=== PATIENT | male | born 1995 | race African-American/Black ===

== ENCOUNTER 2021-10-25 20:13 | Inpatient (IN) | payer MEDICAID, OTHER ==
[~2021-10-25] VITALS: Ht 188 cm; Wt 67.3 kg
[2021-10-25 22:44] LABS: Basophils # (auto) 0.1 10 ^3/uL (0-0.2); Basophils % (auto) 0.4 % (0.0-2.0); Eosinophils # (auto) 0 10 ^3/uL (0-0.8); Hematocrit 48.6 % (41.0-53.0); Hemoglobin 15.6 g/dL (13.5-17.5); Lymphocytes # (auto) 1.3 10 ^3/uL (0.4-5.4); Lymphocytes % (auto) 8.6 % (10.0-50.0); Mean Corpuscular Hemoglobin 32.1 pg (28.0-32.0); Mean Corpuscular Hgb Conc. 32.1 g/dL (32.0-36.0); Mean Corpuscular Volume 100.2 fL (80.0-100.0); Monocytes # (auto) 1.1 10 ^3/uL (0-1.3); Monocytes % (auto) 7.2 % (0.0-12.0); Neutrophils # (auto) 12.6 10 ^3/uL (1.6-8.6); Neutrophils % (auto) 83.8 % (37.0-80.0); Nucleated Red Blood Cells % 0.1 %; Red Blood Cells 4.85 10^6/uL (4.5-5.90); Red Cell Distribution Width 14.7 % (11.8-14.3)
[2021-10-25] MEDS ORDERED: ONDANSETRON HCL 4 MG/2 ML VIAL IV ONE (23:15)
[2021-10-25] MEDS ORDERED: KETOROLAC TROMETH 30 MG/ML 1ML VIAL IV ONE (23:15)
[2021-10-25] MEDS ORDERED: SODIUM CHLORIDE 0.9% 1,000 ML IV ONE (23:15)
[2021-10-25 23:25] LABS: Albumin 5.2 g/dL (3.4-5.0); Calcium 10.9 mg/dL (8.5-10.1)
[2021-10-25 23:27] LABS: Lactic Acid w/Reflex 4.7 mmol/L (0.4-2.0)
[2021-10-25 23:29] LABS: Bilirubin, Total 0.5 mg/dL (0.2-1.0); Total Protein 9.5 g/dL (6.4-8.2)
[2021-10-25 23:57] LABS: BUN/Creatinine Ratio 17.7
[2021-10-26] MEDS ORDERED: DEXTROSE (50%) 50ML SYRG IV PRN (01:15)
[2021-10-26] MEDS ORDERED: SODIUM CHLORIDE 0.9% 1,000 ML IV ONE (01:15)
[2021-10-26] MEDS ORDERED: InsuLIN R (HUMAN) 100 UNITS in SODIUM CHL 0.9% 99 ML IV SCH (01:15)
[2021-10-26] MEDS ORDERED: INSULIN LANTUS (GLARGINE) 1 /0.01ml (100units/ml) SC ONE (01:15)
[2021-10-26] MEDS ORDERED: InsuLIN REG 1unit/0.01ml Soln (100units/ml) ONE (01:20)
[2021-10-26] MEDS: ACCU-CHEK COMFORT CURVE STRIP VI SCH ×12 (01:36→20:00)
[2021-10-26] MEDS ORDERED: MORPHINE SULFATE 4 MG/ML SYR/VIAL IV PRN (02:15)
[2021-10-26] MEDS ORDERED: DOCUSATE SOD 100 MG CAP PO PRN (02:15)
[2021-10-26] MEDS ORDERED: ACETAMINOPHEN 325 MG TAB PO PRN (02:15)
[2021-10-26] MEDS ORDERED: ONDANSETRON HCL 4 MG/2 ML VIAL IV PRN (02:15)
[2021-10-26 02:39] LABS: Urine Bacteria NONE SEEN /hpf (None Seen); Urine Blood Negative /uL (Negative); Urine Mucus FEW (None Seen); Urine WBC 2 /hpf (0 - 3)
[2021-10-26] MEDS: SODIUM CHLORIDE 0.9% 1,000 ML IV SCH ×2 (03:38→18:00)
[2021-10-26] MEDS ORDERED: NITROGLYCERIN 0.4 MG SL TAB SL PRN (04:00)
[2021-10-26] MEDS ORDERED: MORPHINE SULFATE INJECTION 2 MG/ML SYRG IV PRN (04:00)
[2021-10-26] MEDS: cefTRIAXone 1GM/50ML D5W 50 ML IV SCH (04:15)
[2021-10-26] MEDS ORDERED: SODIUM BICARBONATE 8.4 % INJ 50ML VIAL IV ONE (06:45)
[2021-10-26] MEDS: InsuLIN R (HUMAN) 100 UNITS in SODIUM CHL 0.9% 99 ML IV SCH ×2 (07:45→15:52)
[2021-10-26 07:53] LABS: Basophils # (auto) 0 10 ^3/uL (0-0.2); Basophils % (auto) 0.2 % (0.0-2.0); Eosinophils # (auto) 0 10 ^3/uL (0-0.8); Hematocrit 41.4 % (41.0-53.0); Hemoglobin 13.3 g/dL (13.5-17.5); Lymphocytes # (auto) 2.2 10 ^3/uL (0.4-5.4); Lymphocytes % (auto) 12.3 % (10.0-50.0); Mean Corpuscular Hemoglobin 31.4 pg (28.0-32.0); Mean Corpuscular Hgb Conc. 32.2 g/dL (32.0-36.0); Mean Corpuscular Volume 97.5 fL (80.0-100.0); Monocytes # (auto) 1.7 10 ^3/uL (0-1.3); Monocytes % (auto) 9.6 % (0.0-12.0); Neutrophils # (auto) 13.9 10 ^3/uL (1.6-8.6); Neutrophils % (auto) 77.9 % (37.0-80.0); Nucleated Red Blood Cells % 0.1 %; Red Blood Cells 4.24 10^6/uL (4.5-5.90); Red Cell Distribution Width 14.2 % (11.8-14.3); White Blood Cell 17.8 10^3/uL (4.4-10.8)
[2021-10-26 08:10] LABS: Albumin 3.7 g/dL (3.4-5.0); Calcium 8.9 mg/dL (8.5-10.1)
[2021-10-26 08:14] LABS: BUN/Creatinine Ratio 19.2; Bilirubin, Total 0.4 mg/dL (0.2-1.0); Total Protein 7.4 g/dL (6.4-8.2)
[2021-10-26 08:18] LABS: Potassium 5.8 mmol/L (3.5-5.1)
[2021-10-26] MEDS ORDERED: InsuLIN REG 1unit/0.01ml Soln (100units/ml) IV ONE (08:45)
[2021-10-26] MEDS: FAMOTIDINE (10MG/ML) 2ML VL IV SCH ×2 (09:14→21:53)
[2021-10-26] MEDS ORDERED: SODIUM ZIRCONIUM CYCL 10 GM PAK PO ONE (11:30)
[2021-10-26 11:59] LABS: BUN/Creatinine Ratio 17.2; Calcium 9.5 mg/dL (8.5-10.1); Potassium 4.3 mmol/L (3.5-5.1)
[2021-10-26] MEDS ORDERED: D5W/SOD CHLO 0.9% 1,000 ML IV SCH (14:00)
[2021-10-26 16:34] LABS: BUN/Creatinine Ratio 15.4; Calcium 9.6 mg/dL (8.5-10.1); Potassium 4.6 mmol/L (3.5-5.1)
[2021-10-26] MEDS: InsuLIN REG 1unit/0.01ml Soln (100units/ml) SC SCH (20:00)
[2021-10-26 22:00] VITALS: BP 114/67
[2021-10-27] MEDS: InsuLIN REG 1unit/0.01ml Soln (100units/ml) SC SCH ×5 (00:06→15:45)
[2021-10-27] MEDS: ACCU-CHEK COMFORT CURVE STRIP VI SCH ×5 (00:06→15:45)
[2021-10-27 05:00] VITALS: BP 110/65
[2021-10-27 06:56] LABS: Basophils # (auto) 0 10 ^3/uL (0-0.2); Basophils % (auto) 0.2 % (0.0-2.0); Eosinophils # (auto) 0 10 ^3/uL (0-0.8); Hematocrit 39.2 % (41.0-53.0); Hemoglobin 13.2 g/dL (13.5-17.5); Lymphocytes % (auto) 24.4 % (10.0-50.0); Mean Corpuscular Hemoglobin 31.8 pg (28.0-32.0); Mean Corpuscular Hgb Conc. 33.6 g/dL (32.0-36.0); Mean Corpuscular Volume 94.6 fL (80.0-100.0); Monocytes # (auto) 0.7 10 ^3/uL (0-1.3); Monocytes % (auto) 8.4 % (0.0-12.0); Neutrophils # (auto) 5.6 10 ^3/uL (1.6-8.6); Nucleated Red Blood Cells % 0.1 %; Red Blood Cells 4.14 10^6/uL (4.5-5.90); Red Cell Distribution Width 13.6 % (11.8-14.3); White Blood Cell 8.3 10^3/uL (4.4-10.8)
[2021-10-27 07:22] LABS: Potassium 4.1 mmol/L (3.5-5.1)
[2021-10-27 07:29] LABS: Albumin 3.4 g/dL (3.4-5.0); BUN/Creatinine Ratio 12.7; Bilirubin, Total 0.6 mg/dL (0.2-1.0); Total Protein 6.8 g/dL (6.4-8.2)
[2021-10-27 08:00] VITALS: BP 111/70
[2021-10-27] MEDS: cefTRIAXone 1GM/50ML D5W 50 ML IV SCH (08:47)
[2021-10-27] MEDS: FAMOTIDINE (10MG/ML) 2ML VL IV SCH (09:11)
[2021-10-27] MEDS ORDERED: INSULIN LANTUS (GLARGINE) 1 /0.01ml (100units/ml) SC SCH (10:00)
[2021-10-27] MEDS: SODIUM CHLORIDE 0.9% 1,000 ML IV SCH (11:19)
[2021-10-27 13:00] VITALS: BP 111/70
[2021-10-27] MEDS: HYDROcodone-ACET 5/325MG TAB PO PRN ×2 (15:51→19:52)
[2021-10-27 17:00] VITALS: BP 107/63
== END 2021-10-27 20:40 | disposition home or self-care (01) | DRG 720 ==
LOC: ER 20:14 → OVERFLOW 10-26 03:48 → WEST WING 10-26 19:52
PROVIDERS: ADMIT Nurse Practitioner Family; ATTEND Family Medicine
DX: A41.9 Sepsis, unspecified organism (principal); N17.0 Acute kidney failure with tubular necrosis; E10.10 Type 1 diabetes mellitus with ketoacidosis without coma; E87.1 Hypo-osmolality and hyponatremia; E86.0 Dehydration; E87.5 Hyperkalemia; Z20.822 Contact with and (suspected) exposure to COVID-19; Z91.14 Patient's other noncompliance with medication regimen
CPT/HCPCS: 36415; 36600; 71045; 74176; 80048; 80053; 81001; 82010; 82805; 82962; 83036; 83605; 83690; 85025; 87040; 87426; 96361; 96365; 96375; G0378; J0696; J1815; J1885; J2405; J3490; J7060

== ENCOUNTER 2021-11-15 05:43 | Emergency (ER) | payer MEDICAID ==
[~2021-11-15] VITALS: Ht 188 cm; Wt 72.6 kg
[2021-11-15 06:47] VITALS: BP 125/87
[2021-11-15] MEDS ORDERED: METH4PAK PO (07:52)
[2021-11-15] MEDS ORDERED: AZIT500T66 PO (07:52)
[2021-11-15] MEDS ORDERED: ACET-1080 PO (07:52)
== END 2021-11-15 08:23 | disposition home or self-care (01) ==
LOC: ER 05:43
DX: U07.1 COVID-19 (principal); M79.10 Myalgia, unspecified site; E11.9 Type 2 diabetes mellitus without complications
CPT/HCPCS: 36415; 71045; 87426

== ENCOUNTER 2022-01-02 15:02 | Emergency (ER) | payer MEDICAID ==
[~2022-01-02] VITALS: Ht 188 cm; Wt 81.6 kg
[~2022-01-02 15:02] MED LIST: ACET-1080 PO; AZIT500T66 PO; METH4PAK PO
[2022-01-02] MEDS ORDERED: SODIUM CHLORIDE 0.9% 1,000 ML IV ONE (15:30)
[2022-01-02] MEDS ORDERED: ONDANSETRON HCL 4 MG/2 ML VIAL IV ONE ×2 (15:30→19:00)
[2022-01-02 16:00] LABS: Basophils # (auto) 0 10 ^3/uL (0-0.2); Basophils % (auto) 0.7 % (0.0-2.0); Eosinophils # (auto) 0 10 ^3/uL (0-0.8); Eosinophils % (auto) 0.1 % (0.0-7.0); Hematocrit 39.6 % (41.0-53.0); Hemoglobin 13.2 g/dL (13.5-17.5); Lymphocytes # (auto) 1.1 10 ^3/uL (0.4-5.4); Mean Corpuscular Hemoglobin 31.3 pg (28.0-32.0); Mean Corpuscular Hgb Conc. 33.5 g/dL (32.0-36.0); Mean Corpuscular Volume 93.5 fL (80.0-100.0); Monocytes # (auto) 0.2 10 ^3/uL (0-1.3); Monocytes % (auto) 5.5 % (0.0-12.0); Neutrophils # (auto) 2.6 10 ^3/uL (1.6-8.6); Neutrophils % (auto) 66.7 % (37.0-80.0); Nucleated Red Blood Cells % 0.1 %; Red Blood Cells 4.23 10^6/uL (4.5-5.90); Red Cell Distribution Width 13.8 % (11.8-14.3); White Blood Cell 3.9 10^3/uL (4.4-10.8)
[2022-01-02 16:16] LABS: Albumin 4.1 g/dL (3.4-5.0); Calcium 9.4 mg/dL (8.5-10.1)
[2022-01-02 16:19] LABS: BUN/Creatinine Ratio 15.8; Bilirubin, Total 0.4 mg/dL (0.2-1.0); Total Protein 7.8 g/dL (6.4-8.2)
[2022-01-02 18:24] VITALS: BP 127/63
[2022-01-02 20:39] LABS: Urine Bacteria NONE SEEN /hpf (None Seen); Urine Blood Negative /uL (Negative); Urine Specific Gravity 1.034 (1.001-1.035); Urine WBC <1 /hpf (0 - 3)
== END 2022-01-02 20:31 | disposition home or self-care (01) ==
LOC: ER 15:02
DX: B34.9 Viral infection, unspecified (principal); E11.65 Type 2 diabetes mellitus with hyperglycemia; F12.10 Cannabis abuse, uncomplicated; R42 Dizziness and giddiness
CPT/HCPCS: 36415; 36600; 80053; 81001; 82010; 82805; 85025; 96361; 96374; 96376; 99283; J2405

== ENCOUNTER 2022-01-25 13:19 | Emergency (ER) | payer MEDICAID ==
[~2022-01-25] VITALS: Ht 182.9 cm; Wt 77.1 kg
[2022-01-25] MEDS ORDERED: DEXTROSE 10% 1,000 ML IV SCH (13:45)
[2022-01-25 14:29] LABS: Basophils # (auto) 0 10 ^3/uL (0-0.2); Basophils % (auto) 0.8 % (0.0-2.0); Eosinophils # (auto) 0 10 ^3/uL (0-0.8); Eosinophils % (auto) 0.2 % (0.0-7.0); Hematocrit 40.3 % (41.0-53.0); Hemoglobin 13.5 g/dL (13.5-17.5); Lymphocytes % (auto) 21.7 % (10.0-50.0); Mean Corpuscular Hemoglobin 32.3 pg (28.0-32.0); Mean Corpuscular Hgb Conc. 33.5 g/dL (32.0-36.0); Mean Corpuscular Volume 96.4 fL (80.0-100.0); Monocytes # (auto) 0.3 10 ^3/uL (0-1.3); Monocytes % (auto) 7.3 % (0.0-12.0); Neutrophils # (auto) 3.2 10 ^3/uL (1.6-8.6); Red Blood Cells 4.18 10^6/uL (4.5-5.90); Red Cell Distribution Width 14.2 % (11.8-14.3); White Blood Cell 4.6 10^3/uL (4.4-10.8)
[2022-01-25 14:39] LABS: BUN/Creatinine Ratio 14.3; Calcium 8.9 mg/dL (8.5-10.1); Magnesium 2.9 mg/dL (1.6-2.6); Potassium 3.7 mmol/L (3.5-5.1)
[2022-01-25 14:42] LABS: Bilirubin, Total 0.2 mg/dL (0.2-1.0); Total Protein 7.9 g/dL (6.4-8.2)
[2022-01-25 15:30] VITALS: BP 129/81
[2022-01-25 15:31] LABS: Urine Bacteria NONE SEEN /hpf (None Seen); Urine Blood Negative /uL (Negative); Urine Mucus FEW (None Seen); Urine Specific Gravity 1.013 (1.001-1.035); Urine WBC 1 /hpf (0 - 3)
[2022-01-25 15:46] LABS: Alcohol, Urine < 3.0 mg/dL (0-10); Amphetamine Screen, Urine NEGATIVE (NEGATIVE); Barbiturate Scree,Urine NEGATIVE (NEGATIVE); Benzodiazephine Screen, Urine NEGATIVE (NEGATIVE); Cannabinoid Screen, Urine POSITIVE (NEGATIVE); Cocaine Screen, Urine NEGATIVE (NEGATIVE); Phencyclidine Screen, Urine NEGATIVE (NEGATIVE)
[2022-01-25 15:54] LABS: Opiate Scree,Urine NEGATIVE (NEGATIVE)
== END 2022-01-25 18:10 | disposition home or self-care (01) ==
LOC: ER 13:19 → EDBD 13:19 → ER 18:09
DX: E11.649 Type 2 diabetes mellitus with hypoglycemia without coma (principal); F12.10 Cannabis abuse, uncomplicated; Z79.2 Long term (current) use of antibiotics; Z79.899 Other long term (current) drug therapy
CPT/HCPCS: 36415; 71045; 80053; 80307; 81001; 82962; 83735; 85025; 93005; 96360; 96361

== ENCOUNTER 2022-01-28 14:16 | Emergency (ER) | payer MEDICAID ==
[~2022-01-28] VITALS: Ht 182.9 cm; Wt 72.6 kg
[2022-01-28] MEDS ORDERED: SODIUM CHLORIDE 0.9% 1,000 ML IVB ONE (15:00)
[2022-01-28] MEDS ORDERED: MORPHINE SULFATE 4 MG/ML SYR/VIAL IV ONE (15:00)
[2022-01-28] MEDS ORDERED: PANTOPRAZOLE 40 MG/10 ML VIAL INJ IV ONE (15:00)
[2022-01-28] MEDS ORDERED: PROCHLORPERAZINE EDISYLATE 5 MG/ML 2ML VIAL IV ONE (15:00)
[2022-01-28] MEDS ORDERED: MORPHINE SULFATE INJECTION 2 MG/ML SYRG IV ONE (15:30)
[2022-01-28 15:39] LABS: Basophils # (auto) 0 10 ^3/uL (0-0.2); Basophils % (auto) 0.6 % (0.0-2.0); Eosinophils # (auto) 0 10 ^3/uL (0-0.8); Eosinophils % (auto) 0.1 % (0.0-7.0); Hematocrit 41.5 % (41.0-53.0); Hemoglobin 13.9 g/dL (13.5-17.5); Lymphocytes # (auto) 1.3 10 ^3/uL (0.4-5.4); Lymphocytes % (auto) 19.1 % (10.0-50.0); Mean Corpuscular Hemoglobin 31.4 pg (28.0-32.0); Mean Corpuscular Hgb Conc. 33.6 g/dL (32.0-36.0); Mean Corpuscular Volume 93.4 fL (80.0-100.0); Monocytes # (auto) 0.5 10 ^3/uL (0-1.3); Monocytes % (auto) 7.2 % (0.0-12.0); Neutrophils # (auto) 4.8 10 ^3/uL (1.6-8.6); Nucleated Red Blood Cells % 0.2 %; Red Blood Cells 4.44 10^6/uL (4.5-5.90); Red Cell Distribution Width 13.6 % (11.8-14.3); White Blood Cell 6.6 10^3/uL (4.4-10.8)
[2022-01-28 15:52] LABS: Albumin 4.1 g/dL (3.4-5.0); Calcium 9.1 mg/dL (8.5-10.1); Potassium 3.9 mmol/L (3.5-5.1)
[2022-01-28 15:58] LABS: BUN/Creatinine Ratio 18.1; Bilirubin, Total 0.6 mg/dL (0.2-1.0); Total Protein 7.8 g/dL (6.4-8.2)
[2022-01-28] MEDS ORDERED: InsuLIN REG 1unit/0.01ml Soln (100units/ml) IV ONE (16:15)
[2022-01-28 18:33] VITALS: BP 104/72
[2022-01-28] MEDS ORDERED: ONDA-144 PO (18:36)
[2022-01-28] MEDS ORDERED: PANT40TA2 PO (18:36)
[2022-01-28 18:37] LABS: Urine Bacteria NONE SEEN /hpf (None Seen); Urine Blood Negative /uL (Negative); Urine Mucus FEW (None Seen); Urine WBC 2 /hpf (0 - 3)
== END 2022-01-28 18:44 | disposition home or self-care (01) ==
LOC: ER 14:16
DX: F12.188 Cannabis abuse with other cannabis-induced disorder (principal); E11.65 Type 2 diabetes mellitus with hyperglycemia
CPT/HCPCS: 36415; 80053; 81001; 82010; 82150; 82962; 83690; 85025; 96361; 96374; 96375; 99284; C9113; J0780; J2270; J7030

== ENCOUNTER 2025-05-17 01:10 | Inpatient (IN) | payer OTHER ==
[~2025-05-17] VITALS: Ht 185.4 cm; Wt 78.9 kg
[2025-05-17] VITALS (13 sets, daily range): BP systolic 116–141; BP diastolic 73–92; PULSE 67–104; RESP 11–23; TEMP 98.3–98.7; O2SAT 95–97
[~2025-05-17 01:10] MED LIST changes: -ACET-1080 PO; -AZIT500T66 PO; +INSLANTI SC; +INSREGI SC; -METH4PAK PO
--- NOTE | 2025-05-17 01:25 | ED.PDOC ---
GI ASSESSMENT HPI Comments 29 year old male presents to ER with complaints n/v x 3 days. Patient with PMH of Type 1 diabetes states he's been experiencing n/v and lower abdominal pain x 3 days. Notes he was seen at [facility] twice since onset of symptoms and discharged home with diagnosis of gastritis but states his symptoms haven not improved prompting him to come back to ER for further evaluation. He rates his current pain a 10/10 diffuse to lower abdomen without radiation. Denies use of medications for current symptoms and presents to ER ambulatory on arrival with steady gait, alert and oriented x4, in mild distress with BG 405 on arrival. Denies fever, chest pain, shortness of breath, headache, dizziness, con fusion, changes in urination/bm or any further symptoms/complaints Time Seen by MD: 01:13 Primary Care Provider: [facility] Reviewed Notes: Nurses Notes, Medications, Allergies Allergies: Coded Allergies: NO KNOWN ALLERGIES (Unverified , 10/25/21) Home Meds Reported Medications Insulin Glargine (Lantus) 100 Unit/Ml Inj, 16 UNIT SC HS, INJ 04/07/22 Insulin Regular (Human) (Novolin R) 100 Unit/Ml Inj, SC UD 04/07/22 Information Source: Patient Mode of Arrival: Ambulatory Past Medical History PAST MEDICAL HISTORY: DM (Type 1) Surgical History: Denies all surgeries Family History Family History: Family hx of DM Social History Smoker: Non-Smoker Alcohol: Denies ETOH Use Drugs: Marijuana Lives In: Home Constitutional: denies: chills, diaphoresis, fatigue, fever, malaise, sweats, weakness, others EENTM: denies: blurred vision, double vision, ear bleeding, ear discharge, ear drainage, ear pain, ear ringing, eye pain, eye redness, hearing loss, mouth pain, mouth swelling, nasal discharge, nose bleeding, nose congestion, nose pain, photophobia, tearing, throat pain, throat swelling, voice changes, others Respiratory: denies: cough, hemoptysis, orthopnea, SOB at rest, shortness of breath, SOB with excertion, stridor, wheezing, others Cardiovascular: denies: chest pain, dizzy spells, diaphoresis, Dyspnea on ex ertion, edema, irregular heart beat, left arm pain, lightheadedness, palpitations, PND, syncope, others Gastrointestinal: reports: others (As stated in HPI) Genitourinary: denies: burning, dysuria, flank pain, frequency, hematuria, incontinence, penile discharge, penile sore, pain, testicle pain, testicle swelling, urgency, others Neurological: denies: dizziness, fainting, headache, left sided numbness, left sided weakness, numbness, paresthesia, pre-existing deficit, right sided numbness, right sided weakness, seizure, speech problems, tingling, tremors, weakness, others Musculoskeletal: denies: back pain, gout, joint pain, joint swelling, muscle pain, muscle stiffness, neck pain, others Integumetry: denies: bruises, change in color, change in hair/nails, dryness, laceration, lesions, lumps, rash, wounds, others Allergic/Immunocompromised: denies: Difficulty Healing, Frequent Infections, Hives, Itching, others Hematologic/Lymphatic: denies: anemia, blood clots, easy bleeding, easy bruising, swollen glands, others Endocrine: denies: excessive hunger, excessive sweating, excessive thirst, excessive urination, flushing, intolerance to cold, intolerance to heat, unexplained weight gain, unexplained weight loss, others Psychiatric: denies: anxiety, bipolar disorder, depression, hopeless, panic disorder, schizophrenia, sleepless, suicidal, others Physical Exam General Appearance: Mild Distress HEENT: Normal ENT Inspection, PERRL/EOMI, Pharynx Normal, TMs Normal Neck: Full Range of Motion, Non-Tender, Normal Respiratory: Chest Non-Tender, Lungs Clear, No Accessory Muscle Use, No R espiratory Distress, Normal Breath Sounds Cardiovascular: No Murmur, No Gallop, Tachycardia Breast Exam: Deferred Gastrointestinal: No Organomegaly, No Pulsatile Mass, Normal Bowel Sounds, S oft, Other (TTP to periumbilical region of abdomen noted. No rebound/guarding noted. No hernias/masses/skin changes appreciated) Genitalia: Deferred Pelvic: Deferred Rectal: Deferred Extremities: Normal capillary refill, Normal range of motion Neurologic: Alert, model and pattern supervisor II-XII nml as Tested, No Motor Deficits, No Sensory Deficits Cerebellar Function: Normal Reflexes: Normal Skin: Dry, Normal Color, Warm Lymphatic: No Adenopathy Was a procedure done? Was a procedure done?: No Sedation Sedation?: No GI differential Dx Differential Diagnosis: GI hemorrhage, Ischemic Bowel, Trauma intraabdominal X-Ray, Labs, Meds, VS Vital Signs Date Time Temp Pulse Resp B/P (MAP) Pulse Ox O2 Delivery O2 Flow Rate FiO2 05/17/25 02:35 97 21 140/81 05/17/25 02:29 95 15 96 Room Air* 0 21 05/17/25 02:05 95 15 127/86 05/17/25 02:00 98.7 95 15 127/86 (100) 96 98.7 05/17/25 01:28 98.4 118 18 133/89 (104) 95 98.4 Lab Test 05/17/25 03:03 05/17/25 02:30 05/17/25 01:59 05/17/25 01:35 Range/Units POC Glucose 409 *H 415 *H 70-106 mg/dl Blood Gas Specimen Type Arterial Blood Gas Sample Site Right radial Blood Gas Patient Temperature 37.0 Arterial Blood Date Drawn [id number] Arterial Blood pH 7.330 L 7.350-7.450 Arterial Blood Partial Pressure CO2 31.8 L 35.0-48.0 mmHg Arterial Blood Partial Pressure O2 80.6 L 83.0-108.0 mmHg Arterial Blood HCO3 16.4 L 21.0-28.0 mmol/L Arterial Blood Oxygen Saturation 94.6 94.0-98.0 % Arterial Blood Base Excess -8.3 L -2.0-3.0 mmol/L Arterial Blood Oxyhemoglobin 90.6 L 94.0-98.0 % Arterial Blood Carboxyhemoglobin 3.6 H 0.5-1.5 % Arterial Blood Methemoglobin 0.6 0.0-1.5 % Cyrus Test Yes Blood Gas Total Hemoglobin 14.20 13.5-17.5 g/dL Blood Gas Modality Room air FiO2 % 21.0 White Blood Count 5.9 4.4-10.8 10^3/uL Red Blood Count 4.44 L 4.5-5.90 10^6/uL Hemoglobin 14.4 13.5-17.5 g/dL Hematocrit 42.7 41.0-53.0 % Mean Corpuscular Volume 96.1 80.0-100.0 fL Mean Corpuscular Hemoglobin 32.5 H 28.0-32.0 pg Mean Corpuscular Hemoglobin Concent 33.8 32.0-36.0 g/dL Red Cell Distribution Width 13.6 11.8-14.3 % Platelet Count 226 140-450 10^3/uL Mean Platelet Volume 8.1 6.9-10.8 fL Neutrophils (%) (Auto) 71.5 37.0-80.0 % Lymphocytes (%) (Auto) 20.8 10.0-50.0 % Monocytes (%) (Auto) 7.3 0.0-12.0 % Eosinophils (%) (Auto) 0.0 0.0-7.0 % Basophils (%) (Auto) 0.4 0.0-2.0 % Neutrophils # (Auto) 4.2 1.6-8.6 10 ^3/uL Lymphocytes # (Auto) 1.2 0.4-5.4 10 ^3/uL Monocytes # (Auto) 0.4 0-1.3 10 ^3/uL Eosinophils # (Auto) 0 0-0.8 10 ^3/uL Basophils # (Auto) 0 0-0.2 10 ^3/uL Nucleated Red Blood Cells 0.1 % Sodium Level 132 L 136-145 mmol/L Potassium Level 4.6 3.5-5.1 mmol/L Chloride Level 95 L 98-107 mmol/L Carbon Dioxide Level 16 L 20-31 mmol/L Anion Gap 21 H 5-15 Blood Urea Nitrogen 11 9-23 mg/dL Creatinine 1.27 0.700-1.30 mg/dL Glomerular Filtration Rate Calc 77 >90 mL/min BUN/Creatinine Ratio 8.7 L 10.0-20.0 Serum Glucose 439 *H 74-106 mg/dL Lactic Acid Level 2.0 0.4-2.0 mmol/L Calcium Level 9.8 8.7-10.4 mg/dL Phosphorus Level 4.3 2.4-5.1 mg/dL Magnesium Level 1.8 1.6-2.6 mg/dL Lipase 23 12-53 U/L Beta-Hydroxybutyric Acid > 4.500 H < 0.4 mmol/L Test 05/17/25 01:30 05/17/25 01:25 05/17/25 01:24 Range/Units Urine Color Light-yellow Yellow Urine Clarity Clear Clear Urine pH 5.0 5.0-9.0 Urine Specific [place] 1.031 1.001-1.035 Urine Protein Negative Negative Urine Ketones 4+ H Negative Urine Blood Negative Negative /uL Urine Nitrite Negative Negative Urine Bilirubin Negative Negative Urine Urobilinogen Normal Negative mg/dL Urine Leukocyte Esterase Negative Negative /uL Urine RBC <1 0 - 3 /hpf Urine Microscopic WBC 1 0-3 /HPF Urine Squamous Epithelial Cells None seen <5 /hpf Urine Bacteria None seen None Seen /hpf Urine Glucose 4+ H Normal mg/dL POC Glucose 416 *H 405 *H 70-106 mg/dl Current Medications Medications (Trade) Dose Ordered Sig/Lubna Route Start Time Stop Time Status Last Admin Sodium Chloride 1,000 ml @ 1,000 mls/hr Q1H ONCE IV 05/17/25 01:30 05/17/25 02:29 DC 05/17/25 01:51 Morphine Sulfate 2 mg ONCE ONCE IV 05/17/25 01:30 05/17/25 01:31 DC 05/17/25 02:05 Ondansetron HCl (Zofran) 4 mg ONCE ONCE IV 05/17/25 02:00 05/17/25 02:01 DC 05/17/25 02:04 Insulin Human (Reg)/Sodium Chloride 100 ml @ 0.5 mls/hr Q24H IV 05/17/25 02:30 05/17/25 02:46 Diagnostic Test (Pha) (Accu-Chek Comfort Curve T) 1 strip Q90MIN 05/17/25 03:00 05/17/25 03:02 Potassium Bicarbonate (Klor-Con/Ef) 25 meq ONCE ONCE PO 05/17/25 03:15 05/17/25 03:16 DC 05/17/25 03:12 PATIENT: DONTRELL HOODCCT: [id number]: [id number] : 1995 LOC: ER ROOM / BED: / AGE / SEX: 29 / M ADM STATUS: REG ER SERVICE 0140 ORDERING PHYSICIAN: EDER ANN PROCEDURE(s): ABPL - CT AB PEL WO CON-NO ORAL OR IV REASON: abdominal pain ORDER NUMBER(s): [id number], ACCESSION NUMBER(s): [id number] Exam: CT CT AB PEL WO CON-NO ORAL OR IV History: abdominal pain Comparison Study: CT ABD PELVIS WO CONTRAST on DOS: 04/06/22, CT ABD PELVIS WO CONTRAST on DOS: 10/25/21 Technique: Multidetector spiral CT of the abdomen was performed from lung bases to pubic symphysis. Imaging was performed without IV contrast. Axial, coronal and sagittal multiplanar reformats were obtained from the axial data set by the technologist. Radiation Dose : 1. Abdomen/Pelvis: CTDIvol 5.84 mGy, DLP 333.31 mGy*cm. Findings: Evaluation of solid organs is limited due to lack of intravenous contrast use. Lung Bases: No acute or significant lung base finding. Normal heart size. No pleural or pericardial effusion. Liver: The liver is normal in size. Diffuse hepatic steatosis. No focal lesions. Gallbladder and Biliary Tree: Unremarkable Spleen: Unremarkable Pancreas: The pancreas is grossly normal in appearance. Adrenal Glands: Unremarkable Kidneys: Kidneys are grossly normal without calculi or hydronephrosis. Bladder: Grossly unremarkable for degree of distention. Bowel: The stomach is grossly normal in appearance. Small bowel and colon are normal in caliber and distribution. The appendix is normal. Ascites: Absent Lymphadenopathy: No mesenteric, retroperitoneal or periportal lymphadenopathy. Abdominal Wall and Mesentery: Unremarkable. Vasculature: The visualized abdominal aorta is normal in size and caliber. Evaluation of abdominal and pelvic vessels is limited due to lack of intravenous contrast. Pelvic Organs: Unremarkable Musculoskeletal: No aggressive focal bony lesions, acute fractures or dislocation. IMPRESSION: 1. No acute abdominal or pelvic findings. 2. Hepatic steatosis. Radiation optimization: All CT scans at this facility use at least one of these dose optimization techniques: automated exposure control mA and/or kV adjustment per patient size (includes targeted exams where dose is matched to clinical indication) or iterative reconstruction. ATED BY: SHELDON HERNANDEZ MD DICTATED DATE/TIME: 05/17/25232 SIGNED BY: SHELDON HERNANDEZ MD SIGNED DATE/TIME: 05/17/25232 CC: CT abdomen/pelvis w/o contrast reviewed CBC reviewed without any significant abnormalities BMP reviewed-sodium 132, CO2 16, anion gap 21, glucose 439 Beta hydroxybutyric reviewed-greater than 4.5 Lactic acid reviewed - normal Magnesium reviewed - normal Phosphorus reviewed-normal ABG o Urinalysis reviewed-urine ketones 4+ Hep-Lock IV ordered NS 1 L IV ordered NS 1 L IV ordered Zofran 4 mg IV ordered Morphine 2 mg IV ordered Insulin drip ordered Potassium 25 MEQ p.o. ordered Patient resting comfortably at bedside, in no distress with vitals stable Patient put up for admission orders for DKA Images Reviewed?: Images reviewed and evaluated by me Time of 1ST Reevaluation: 01:32 Reevaluation 1ST: N/A Patient Education/Counseling: Diagnosis, Treatment, Prognosis, Need For Follow Up Family Education/Counseling: No Family Present SEPSIS Sepsis Screen Physician Orders Heplock Iv (05/17/25 ) Ct Ab Pel Wo Con-No Oral Or Iv (05/17/25 01:40) Alternative Energy Engineer (05/17/25 01:28) Blood Pressure (05/17/25 01:28) Pulse Oximetry (05/17/25 01:28) Insulin Drip Protocol (05/17/25 ) Insulin Drip 100 Unit/100ml (Myxredlin 1 (05/17/25 02:30) Abg W/ Co-Ox (05/17/25 02:19) Glucose Blood (Accu-Chek Comfort Curve T (05/17/25 03:00) Admit (05/17/25 03:24) Nitroglycerin Sublingual (Ntrostat Subli (05/17/25 03:30) Morphine Sulfate Injection (05/17/25 03:30) Oxygen By Nasal Cannula (05/17/25 03:24) Stat Ekg For Chest Pain (05/17/25 03:24) Notify Md Of Changes From Base (05/17/25 03:24) Life Sciences Director For 24 Hours (05/17/25 03:24) Emergency Dysrhythmia Protocol (05/17/25 03:24) Rhythm Strips Once Every Shift (05/17/25 03:24) Sodium Chloride 0.9% (05/17/25 03:30) Comprehensive Metabolic Panel (05/17/25 06:30) Basic Metabolic Panel (05/17/25 14:00) Basic Metabolic Panel (05/17/25 18:00) Basic Metabolic Panel (05/17/25 22:00) Ondansetron Hcl (Zofran) (05/17/25 03:30) Pantoprazole (Protonix) (05/17/25 10:00) Sodium Chloride 0.9% (05/17/25 06:00) Vital Signs Date Time Temp Pulse Resp B/P (MAP) Pulse Ox O2 Delivery O2 Flow Rate FiO2 05/17/25 02:35 97 21 140/81 05/17/25 02:29 95 15 96 Room Air* 0 21 05/17/25 02:05 95 15 127/86 05/17/25 02:00 98.7 95 15 127/86 (100) 96 98.7 05/17/25 01:28 98.4 118 18 133/89 (104) 95 98.4 Laboratory Tests Test 05/17/25 01:35 Lactic Acid Level 2.0 mmol/L (0.4-2.0) White Blood Count 5.9 10^3/uL (4.4-10.8) Medications Medications Dose Ordered Sig/Lubna Route Start Time Stop Time Status Last Admin Dose Admin Diagnostic Test (Pha) 1 strip Q90MIN 05/17/25 03:00 05/17/25 03:02 Insulin Human (Reg)/Sodium Chloride 100 ml @ 0.5 mls/hr Q24H IV 05/17/25 02:30 05/17/25 02:46 Morphine Sulfate 2 mg ONCE ONCE IV 05/17/25 01:30 05/17/25 01:31 DC 05/17/25 02:05 Ondansetron HCl 4 mg ONCE ONCE IV 05/17/25 02:00 05/17/25 02:01 DC 05/17/25 02:04 Potassium Bicarbonate 25 meq ONCE ONCE PO 05/17/25 03:15 05/17/25 03:16 DC 05/17/25 03:12 Sodium Chloride 1,000 ml @ 1,000 mls/hr Q1H ONCE IV 05/17/25 01:30 05/17/25 02:29 DC 05/17/25 01:51 Departure 1 Departure Time of Disposition: 02:22 Impression: Primary Impression: DKA (diabetic ketoacidosis) Qualified Codes: E10.10 - Type 1 diabetes mellitus with ketoacidosis without coma Additional Impression: Intractable nausea and vomiting Disposition: ADMITTED INPATIENT Condition: Critical Critical Care Note Critical Care Time?: No Stability Stability form required: No Heart Score Heart Score: Heart Score Response (Comments) Value History N/A 0 EKG N/A 0 Age N/A 0 Risk Factors N/A 0 Troponin N/A 0 Total 0 EDER ANN May 17, 2025 01:25
[2025-05-17] MEDS ORDERED: ONDANSETRON ODT 4 MG TAB PO ONE (01:30)
[2025-05-17] MEDS: SODIUM CHLORIDE 0.9% 1,000 ML IV ONE ×2 (01:51→05:54)
[2025-05-17 01:53] LABS: Urine Bacteria None Seen /hpf (None Seen)
[2025-05-17 02:00] LABS: Potassium 4.6 mmol/L (3.5-5.1)
[2025-05-17 02:01] LABS: Anion Gap 21 (5-15); Basophils # (auto) 0 10 ^3/uL (0-0.2); Basophils % (auto) 0.4 % (0.0-2.0); Eosinophils # (auto) 0 10 ^3/uL (0-0.8); Hematocrit 42.7 % (41.0-53.0); Hemoglobin 14.4 g/dL (13.5-17.5); Lymphocytes # (auto) 1.2 10 ^3/uL (0.4-5.4); Lymphocytes % (auto) 20.8 % (10.0-50.0); Mean Corpuscular Hemoglobin 32.5 pg (28.0-32.0); Mean Corpuscular Hgb Conc. 33.8 g/dL (32.0-36.0); Mean Corpuscular Volume 96.1 fL (80.0-100.0); Monocytes # (auto) 0.4 10 ^3/uL (0-1.3); Monocytes % (auto) 7.3 % (0.0-12.0); Neutrophils # (auto) 4.2 10 ^3/uL (1.6-8.6); Neutrophils % (auto) 71.5 % (37.0-80.0); Nucleated Red Blood Cells % 0.1 %; Platelet Count (auto) 226 10^3/uL (140-450); Red Blood Cells 4.44 10^6/uL (4.5-5.90); Red Cell Distribution Width 13.6 % (11.8-14.3); White Blood Cell 5.9 10^3/uL (4.4-10.8)
[2025-05-17 02:02] LABS: Urine Blood Negative /uL (Negative); Urine Clarity Clear (Clear); Urine Color Light-Yellow (Yellow); Urine Protein, UAD Negative (Negative); Urine Specific Gravity 1.031 (1.001-1.035); Urine Squamous Epithelial Cell None Seen /hpf (<5); Urine Urobilinogen Normal (Negative); Urine WBC 1 /HPF (0-3)
[2025-05-17 02:02] LABS: Calcium 9.8 mg/dL (8.7-10.4)
[2025-05-17] MEDS: ONDANSETRON HCL 4 MG/2 ML VIAL ONE (02:04)
[2025-05-17] MEDS: ONDANSETRON HCL 4 MG/2 ML VIAL IV ONE (02:04)
[2025-05-17] MEDS: MORPHINE SULFATE INJ 2 MG/ml SYRG IV ONE (02:05)
[2025-05-17 02:06] LABS: BUN/Creatinine Ratio 8.7 (10.0-20.0); Blood Urea Nitrogen 11 mg/dL (9-23)
[2025-05-17 02:07] LABS: Lipase 23 U/L (12-53)
[2025-05-17 02:09] LABS: Carbon Dioxide 16 mmol/L (20-31); Chloride 95 mmol/L (98-107); Sodium 132 mmol/L (136-145)
[2025-05-17 02:10] LABS: Glucose 439 mg/dL (74-106)
[2025-05-17 02:18] LABS: Magnesium 1.8 mg/dL (1.6-2.6)
[2025-05-17 02:20] LABS: Phosphorus 4.3 mg/dL (2.4-5.1)
[2025-05-17 02:36] LABS: Base Excess -8.3 mmol/L (-2.0-3.0)
--- NOTE | 2025-05-17 02:36 | DVH ---
Exam: CT CT AB PEL WO CON-NO ORAL OR IV History: abdominal pain Comparison Study: CT ABD PELVIS WO CONTRAST on DOS: 04/06/22, CT ABD PELVIS WO CONTRAST on DOS: 1 Technique: Multidetector spiral CT of the abdomen was performed from lung bases to pubic symphysis. I maging was performed without IV contrast. Axial, coronal and sagittal multiplanar reformats were obta ined from the axial data set by the technologist. Radiation Dose : 1. Abdomen/Pelvis: CTDIvol 5.84 mGy, DLP 333.31 mGy*cm. Findings: Evaluation of solid organs is limited due to lack of intravenous contrast use. Lung Bases: No acute or significant lung base finding. Normal heart size. No pleural or pericardial effusion. Liver: The liver is normal in size. Diffuse hepatic steatosis. No focal lesions. Gallbladder and Biliary Tree: Unremarkable Spleen: Unremarkable Pancreas: The pancreas is grossly normal in appearance. Adrenal Glands: Unremarkable Kidneys: Kidneys are grossly normal without calculi or hydronephrosis. Bladder: Grossly unremarkable for degree of distention. Bowel: The stomach is grossly normal in appearance. Small bowel and colon are normal in caliber and d istribution. The appendix is normal. Ascites: Absent Lymphadenopathy: No mesenteric, retroperitoneal or periportal lymphadenopathy. Abdominal Wall and Mesentery: Unremarkable. Vasculature: The visualized abdominal aorta is normal in size and caliber. Evaluation of abdominal a nd pelvic vessels is limited due to lack of intravenous contrast. Pelvic Organs: Unremarkable Musculoskeletal: No aggressive focal bony lesions, acute fractures or dislocation. IMPRESSION: 1. No acute abdominal or pelvic findings. 2. Hepatic steatosis. Radiation optimization: All CT scans at this facility use at least one of these dose optimization juvenal hniques: automated exposure control mA and/or kV adjustment per patient size (includes targeted exam s where dose is matched to clinical indication) or iterative reconstruction.
[2025-05-17] MEDS: INSULIN DRIP 100 UNIT/100ML 100 ML IV SCH (02:46)
[2025-05-17] MEDS: ACCU-CHEK COMFORT CURVE STRIP VI SCH ×2 (03:02→11:58)
[2025-05-17] MEDS: POTASSIUM CHL 20 Meq TABLET PO ONE (03:02)
[2025-05-17] MEDS: POTASSIUM EFFERVESENT TAB 25 MEQ PO ONE (03:12)
[2025-05-17] MEDS ORDERED: ONDANSETRON HCL 4 MG/2 ML VIAL IV PRN (03:30)
[2025-05-17] MEDS ORDERED: MORPHINE SULFATE INJ 2 MG/ml SYRG IV PRN (03:30)
[2025-05-17] MEDS ORDERED: NITROGLYCERIN 0.4 MG SL TAB SL PRN (03:30)
[2025-05-17] MEDS: SODIUM CHLORIDE 0.9% 500 ML IV ONE (03:53)
[2025-05-17] MEDS ORDERED: MORPHINE SULFATE IV PRN (04:00)
[2025-05-17] MEDS ORDERED: DEXTROSE (50%) 50ML SYRG IV PRN ×2 (04:00→09:30)
--- NOTE | 2025-05-17 04:01 | DVHHP2 ---
Admitting Diagnosis: Nausea and vomiting History of Present Illness 29 year old male with history of DM I is complaining of nausea and vomiting with abdominal pain x3 days. Patient states he was seen at [facility] times for the same symptoms and was diagnosed with gastritis. Patient states symptoms have no improved. Blood sugar was 405 on arrival . While in the emergency department the patient was evaluated by the provider. Patient will be admitted for further evaluation and treatment. I discussed admission with the patient/family and is in agreement to treatment plan. Patient Family History: FH: multiple sclerosis G8 MOTHER Hypertension G8 MOTHER Allergies: Coded Allergies: NO KNOWN ALLERGIES (Unverified , 10/25/21) Home Meds Active Scripts Insulin Syringe/Needle U-100 (Insulin Syringes 0.3ML/31 31G X 1/4" 0.3 ml) 1 Mis Mis, MIS XX TIDHS, #100 Prov:SUMITLETICIACHANDAMARGUERITE Middleton NP 05/17/25 Lancets (Freestyle Lancets) Lancets Mis, EA XX TID, #100 Prov:CHANDA LEMUS NP 05/17/25 Blood Glucose Monitoring Suppl (Blood Glucose Monitoring W/Device) 1 Kit Kit, KIT XX, #1 Prov:SUMITVAHE KELLYMARGUERITE Middleton NP 05/17/25 Insulin Regular (Human) (Novolin R) 100 Unit/Ml Inj, 0 UNITS SC AC for 30 Days, #10 ML 6 Refills Use sliding scale as directed Prov:CHANDA LEMUS Kane HAWKINS 05/17/25 Insulin Glargine (Lantus) 100 Unit/Ml Inj, 16 UNIT SC HS for 30 Days, #10 ML 6 Refills Prov:MARIAHCHANDAMARGUERITE Middleton NP 05/17/25 Reported Medications Insulin Regular (Human) (Novolin R) 100 Unit/Ml Inj, SC UD 04/07/22 Current Medications Current Medications Medications (Trade) Dose Ordered Sig/Lubna Route PRN Reason Start Time Stop Time Status Last Admin Insulin Human (Reg)/Sodium Chloride 100 ml @ 0.5 mls/hr Q24H IV 05/17/25 02:30 05/17/25 09:30 DC 05/17/25 02:46 Diagnostic Test (Pha) (Accu-Chek Comfort Curve T) 1 strip Q90MIN 05/17/25 03:00 05/17/25 09:41 DC 05/17/25 07:32 Nitroglycerin (Ntrostat Sublingual) 0.4 mg Q5MINP PRN SL FOR CHEST PAIN 05/17/25 03:30 Morphine Sulfate 2 mg Q30M PRN IV FOR CHEST PAIN 05/17/25 03:30 05/17/25 03:57 DC Ondansetron HCl (Zofran) 4 mg Q6HPRN PRN IV NAUSEA / VOMITING 05/17/25 03:30 Pantoprazole Sodium (Protonix) 40 mg DAILY IV 05/17/25 10:00 05/17/25 04:35 DC Morphine Sulfate 2 mg Q30M PRN IV FOR CHEST PAIN 05/17/25 04:00 Sodium Chloride 1,000 ml @ 150 mls/hr Q6H40M IV 05/17/25 10:00 05/17/25 07:42 Dextrose 50 ml UD PRN IV SEE CURRENT ALGORITHM or SCALE 05/17/25 04:00 05/17/25 09:41 DC Pantoprazole Sodium (Protonix) 40 mg DAILY IV 05/17/25 10:00 05/17/25 07:41 Diagnostic Test (Pha) (Accu-Chek Comfort Curve T) 1 strip ACHS 05/17/25 11:30 05/17/25 11:58 Insulin Human Regular (InsuLIN R) HS SC 05/17/25 22:00 Insulin Human Regular (InsuLIN R) AC SC 05/17/25 11:30 05/17/25 11:58 Dextrose 50 ml UD PRN IV Blood Sugar LESS THAN 60 05/17/25 09:30 Insulin Glargine (Lantus) 10 units DAILY@1000 SC 05/17/25 10:00 05/17/25 09:42 Review of Systems Abdominal pain Nausea and vomiting Vital Signs Vital Signs Date Time Temp Pulse Resp B/P (MAP) Pulse Ox O2 Delivery O2 Flow Rate FiO2 05/17/25 13:06 98.7 80 17 97 05/17/25 13:00 123/73 (90) 05/17/25 08:00 Room Air* 0 21 Physical Exam General Appearance: alert, no distress HEENT: EOMI, PERRLA, normal external inspect of ears, no icterus, no nasal drainage Neck: no carotid bruit, no jugular venous distention (JVD), no lymphadenopathy Chest: normal thorax Respiratory: clear to auscultation, normal air movement Cardiovascular: regular rate and rhythm, no diastolic murmur, no jugular venous distention (JVD), no rub, no systolic murmur Abdominal: soft, no hepatomegaly, no mass, no splenomegaly, no tenderness Musculoskeletal: no joint tenderness, no swelling Extremities: normal pulses, no calf tenderness, no clubbing, no cyanosis, no edema Skin: no bruising, no jaundice, no rash Neurological: alert, No focal deficit Results Labs Test 05/17/25 09:49 05/17/25 08:52 05/17/25 06:38 05/17/25 02:30 Range/Units Sodium Level 137 136-145 mmol/L Potassium Level 4.7 3.5-5.1 mmol/L Chloride Level 103 98-107 mmol/L Carbon Dioxide Level 21 20-31 mmol/L Anion Gap 13 5-15 Blood Urea Nitrogen 10 9-23 mg/dL Creatinine 1.10 0.700-1.30 mg/dL Glomerular Filtration Rate Calc 92 >90 mL/min BUN/Creatinine Ratio 9.1 L 10.0-20.0 Serum Glucose 176 H 74-106 mg/dL Calcium Level 9.4 8.7-10.4 mg/dL Phosphorus Level 3.6 2.4-5.1 mg/dL Magnesium Level 1.7 1.6-2.6 mg/dL Beta-Hydroxybutyric Acid 4.338 H < 0.4 mmol/L POC Glucose 180 H 70-106 mg/dl Total Bilirubin 0.6 0.2-1.0 mg/dL Aspartate Amino Transferase (AST) 17 <34 U/L Alanine Aminotransferase (ALT) 16 7-40 U/L Alkaline Phosphatase 112 46-116 U/L Total Protein 6.6 5.7-8.2 g/dL Albumin 4.1 3.2-4.8 g/dL Blood Gas Specimen Type Arterial Blood Gas Sample Site Right radial Blood Gas Patient Temperature 37.0 Arterial Blood Date Drawn [id number] Arterial Blood pH 7.330 L 7.350-7.450 Arterial Blood Partial Pressure CO2 31.8 L 35.0-48.0 mmHg Arterial Blood Partial Pressure O2 80.6 L 83.0-108.0 mmHg Arterial Blood HCO3 16.4 L 21.0-28.0 mmol/L Arterial Blood Oxygen Saturation 94.6 94.0-98.0 % Arterial Blood Base Excess -8.3 L -2.0-3.0 mmol/L Arterial Blood Oxyhemoglobin 90.6 L 94.0-98.0 % Arterial Blood Carboxyhemoglobin 3.6 H 0.5-1.5 % Arterial Blood Methemoglobin 0.6 0.0-1.5 % Cyrus Test Yes Blood Gas Total Hemoglobin 14.20 13.5-17.5 g/dL Blood Gas Modality Room air FiO2 % 21.0 Test 05/17/25 01:35 05/17/25 01:30 Range/Units White Blood Count 5.9 4.4-10.8 10^3/uL Red Blood Count 4.44 L 4.5-5.90 10^6/uL Hemoglobin 14.4 13.5-17.5 g/dL Hematocrit 42.7 41.0-53.0 % Mean Corpuscular Volume 96.1 80.0-100.0 fL Mean Corpuscular Hemoglobin 32.5 H 28.0-32.0 pg Mean Corpuscular Hemoglobin Concent 33.8 32.0-36.0 g/dL Red Cell Distribution Width 13.6 11.8-14.3 % Platelet Count 226 140-450 10^3/uL Mean Platelet Volume 8.1 6.9-10.8 fL Neutrophils (%) (Auto) 71.5 37.0-80.0 % Lymphocytes (%) (Auto) 20.8 10.0-50.0 % Monocytes (%) (Auto) 7.3 0.0-12.0 % Eosinophils (%) (Auto) 0.0 0.0-7.0 % Basophils (%) (Auto) 0.4 0.0-2.0 % Neutrophils # (Auto) 4.2 1.6-8.6 10 ^3/uL Lymphocytes # (Auto) 1.2 0.4-5.4 10 ^3/uL Monocytes # (Auto) 0.4 0-1.3 10 ^3/uL Eosinophils # (Auto) 0 0-0.8 10 ^3/uL Basophils # (Auto) 0 0-0.2 10 ^3/uL Nucleated Red Blood Cells 0.1 % Hemoglobin A1c 8.1 H <5.7 % A1C Serum Osmolality 302 H 278-298 mOsm/kg Lactic Acid Level 2.0 0.4-2.0 mmol/L Lipase 23 12-53 U/L Urine Color Light-yellow Yellow Urine Clarity Clear Clear Urine pH 5.0 5.0-9.0 Urine Specific [place] 1.031 1.001-1.035 Urine Protein Negative Negative Urine Ketones 4+ H Negative Urine Blood Negative Negative /uL Urine Nitrite Negative Negative Urine Bilirubin Negative Negative Urine Urobilinogen Normal Negative mg/dL Urine Leukocyte Esterase Negative Negative /uL Urine RBC <1 0 - 3 /hpf Urine Microscopic WBC 1 0-3 /HPF Urine Squamous Epithelial Cells None seen <5 /hpf Urine Bacteria None seen None Seen /hpf Urine Glucose 4+ H Normal mg/dL Primary Diagnosis - DKA Insulin drip, replace electrolytes, diet, monitoring -DM type I Insulin drip, replace electrolytes, diet, monitoring - Intractable nausea and vomiting IV fluids, antiemetics, monitoring Plan discussed with: Patient, Other CHANDA LEMUS NP May 17, 2025 04:00
[2025-05-17] MEDS: MAGNESIUM SULFATE 1GM/100ML 200 ML IV ONE (04:38)
[2025-05-17 07:05] LABS: Alanine Aminotransferase 16 U/L (7-40); Albumin 4.1 g/dL (3.2-4.8); Alkaline Phosphatase 112 U/L (46-116); Anion Gap 11 (5-15); Aspartate Aminotransferase 17 U/L (<34); BUN/Creatinine Ratio 9.1 (10.0-20.0); Blood Urea Nitrogen 10 mg/dL (9-23); Carbon Dioxide 22 mmol/L (20-31); Chloride 101 mmol/L (98-107); Potassium 4.3 mmol/L (3.5-5.1); Total Protein 6.6 g/dL (5.7-8.2)
[2025-05-17 07:06] LABS: Bilirubin, Total 0.6 mg/dL (0.2-1.0); Calcium 8.6 mg/dL (8.7-10.4); Glucose 198 mg/dL (74-106); Sodium 134 mmol/L (136-145)
[2025-05-17] MEDS: PANTOPRAZOLE 40 MG/10 ML VIAL INJ IV SCH (07:36)
[2025-05-17] MEDS: SODIUM CHLORIDE 0.9% 1,000 ML IV SCH (07:42)
[2025-05-17] MEDS: INSULIN LANTUS (GLARGINE) 1 /0.01ml (100units/ml) SC SCH (09:42)
[2025-05-17] MEDS ORDERED: PANTOPRAZOLE 40 MG/10 ML VIAL INJ IV SCH (10:00)
[2025-05-17 10:27] LABS: Chloride 103 mmol/L (98-107); Potassium 4.7 mmol/L (3.5-5.1); Sodium 137 mmol/L (136-145)
[2025-05-17 10:28] LABS: Anion Gap 13 (5-15); Carbon Dioxide 21 mmol/L (20-31)
[2025-05-17 10:29] LABS: Calcium 9.4 mg/dL (8.7-10.4)
[2025-05-17 10:34] LABS: BUN/Creatinine Ratio 9.1 (10.0-20.0); Blood Urea Nitrogen 10 mg/dL (9-23); Glucose 176 mg/dL (74-106)
[2025-05-17 10:36] LABS: Phosphorus 3.6 mg/dL (2.4-5.1)
[2025-05-17 10:51] LABS: Magnesium 1.7 mg/dL (1.6-2.6)
--- NOTE | 2025-05-17 11:34 | DVHPNRES ---
Progress Note Date Seen: May 17, 2025 Resident Creating Document: NASH SCHWAB RESIDENT Has the PT tested + for MRSA If YES, has PT been informed?: No Medical Necessity Reason Pt with a Central, PICC or Fol: No Medical Necessity Reason Patient is a 29-year-old male with a medical history significant for type 1 diabetes diagnosed at the age of 15 on Lantus and NovoLog. Patient presented to the ED after 3 days of abdominal pain, nausea, and vomiting. Per patient, he had went to [facility] on Wednesday with same symptoms and blood sugar of 400. However, patient said he was told he has gastritis and sent home. He returned the the next day to the same hospital and still he was managed for gastritis. Without getting any better patient decided to present to the [facility] ED for 2nd opinion. He was tachycardic, tachypneic, blood work reveal blood sugar of 439, A1c of 8.1, Beta hydroxybutyric acid elevated, and anion gap of 21. Was started on fluids and insulin drip. At the time of my evaluation, patient was overall stable. the anion gap had closed ,electrolytes corrected and patient is doing much better. He was not in any form of distress and not on oxygen. Subjective Review of Systems Constitutional: Denies fever no chills no feeling of malaise HEENT: Denies headache, ear pain, ear discharges, conjunctivitis, nasal discharge throat pain Cardiovascular: Denies chest pain, palpitation, orthopnea, PND, or pedal edema Respiratory: Denies shortness of breath, cough cough, sputum production, hemoptysis, GI: Denies abdominal pain, nausea, vomiting, diarrhea, hematemesis, hematochezia, : Denies frequency, urgency, hematuria, Endocrine: Denies unintentional weight gain or weight loss, feeling of hot flashes, Arnoldo: Denies easy bruising, bleeding disorders, epistaxis Musculoskeletal: Denies joint pains, muscle aches Psych: No evidence of depression, amanda, suicidal ideation Objective vital signs Vital Sign Date Time Temp Pulse Resp B/P (MAP) Pulse Ox O2 Delivery O2 Flow Rate FiO2 05/17/25 09:00 85 17 116/73 (87) 95 05/17/25 08:00 Room Air* 0 21 05/17/25 08:00 98.7 98.7 Total Intake and Output 05/16/25 05/16/25 05/17/25 15:00 23:00 07:00 Intake Total 1102 ml Balance 1102 ml medications Current Medications Medications Dose Ordered Sig/Lubna Route Start Time Stop Time Status Last Admin Dose Admin Nitroglycerin 0.4 mg Q5MINP PRN SL 05/17/25 03:30 Ondansetron HCl 4 mg Q6HPRN PRN IV 05/17/25 03:30 Morphine Sulfate 2 mg Q30M PRN IV 05/17/25 04:00 Sodium Chloride 1,000 ml @ 150 mls/hr Q6H40M IV 05/17/25 10:00 05/17/25 07:42 150 MLS/HR Pantoprazole Sodium 40 mg DAILY IV 05/17/25 10:00 05/17/25 07:41 40 MG Diagnostic Test (Pha) 1 strip ACHS 05/17/25 11:30 Insulin Human Regular HS SC 05/17/25 22:00 Insulin Human Regular AC SC 05/17/25 11:30 Dextrose 50 ml UD PRN IV 05/17/25 09:30 Insulin Glargine 10 units DAILY@1000 SC 05/17/25 10:00 05/17/25 09:42 10 UNITS Examination General Appearance: Alert, Oriented X3, Cooperative, No acute distress HEENT: Atraumatic, PERRLA, EOMI, Mucous membrane moist/pink Respiratory: Clear to auscultation, Normal air movement Cardiovascular: Regular rate, Normal S1, Normal S2, No murmurs, no chest wall tenderness Abdominal: NO distention, no tenderness, bowel sounds present, no scars noted Extremities: No clubbing, No cyanosis, No edema, Normal pulses, No tenderness/swelling Skin: No rashes, No breakdown, No significant lesion Neuro: Normal gait, Normal speech, Strength at 5/5 X4 ext, Normal tone, Sensation intact, Cranial nerves 3-12 NL, Reflexes 2+ Psych/Mental Status: Mental status NL, Mood NL laboratory and microbiology Laboratory Tests 05/17/25 09:49 05/17/25 01:35 Test 05/17/25 09:49 Range/Units Serum Glucose 176 H 74-106 mg/dL Problem List/Assessment/Plan Problem List/Assessment/Plan Assessment and plan Endocrine: Diabetic ketoacidosis with hyperglycemia Mildly metabolic acidosis Anion gap closed Ketonuria - N/S 100mls/hr - Moderate sliding scale - lantus 15 unit at night Metabolic hyponatremia improved Gastrointestinal Hepatic steatosis. - Control diet and fatty food intake IV access: Peripheral : left arm Disposition: Home Patients advised to follow at the discharge clinic in 7 days for reevaluation. Goal of care discussed for more than 20 minutes; Full code Case and plan discussed with DR. Cali Plan discussed with: Patient NASH SCHWAB RESIDENT May 17, 2025 11:34
[2025-05-17] MEDS: InsuLIN REG 1unit/0.01ml Soln (100units/ml) SC SCH (11:58)
[2025-05-17] MEDS ORDERED: LANC-347 XX (13:00)
[2025-05-17] MEDS ORDERED: INSREGI SC (13:00)
[2025-05-17] MEDS ORDERED: [UNRECOGNIZED DRUG - CODE] XX (13:00)
[2025-05-17] MEDS ORDERED: BLOO-200 XX (13:00)
[2025-05-17] MEDS ORDERED: INSLANTI SC (13:00)
--- NOTE | 2025-05-17 15:46 | DVHDS2 ---
Discharge Summary Date of Admission May 17, 2025 at 03:24 Date of Discharge: May 17, 2025 Labs/Diagnostic Data: Laboratory Results Test 05/17/25 09:49 05/17/25 08:52 05/17/25 06:38 05/17/25 02:30 Sodium Level 137 mmol/L (136-145) Potassium Level 4.7 mmol/L (3.5-5.1) Chloride Level 103 mmol/L (98-107) Carbon Dioxide Level 21 mmol/L (20-31) Anion Gap 13 (5-15) Blood Urea Nitrogen 10 mg/dL (9-23) Creatinine 1.10 mg/dL (0.700-1.30) Glomerular Filtration Rate Calc 92 mL/min (>90) BUN/Creatinine Ratio 9.1 (10.0-20.0) Serum Glucose 176 mg/dL (74-106) Calcium Level 9.4 mg/dL (8.7-10.4) Phosphorus Level 3.6 mg/dL (2.4-5.1) Magnesium Level 1.7 mg/dL (1.6-2.6) Beta-Hydroxybutyric Acid 4.338 mmol/L (< 0.4) POC Glucose 180 mg/dl (70-106) Total Bilirubin 0.6 mg/dL (0.2-1.0) Aspartate Amino Transferase (AST) 17 U/L (<34) Alanine Aminotransferase (ALT) 16 U/L (7-40) Alkaline Phosphatase 112 U/L (46-116) Total Protein 6.6 g/dL (5.7-8.2) Albumin 4.1 g/dL (3.2-4.8) Blood Gas Specimen Type Arterial Blood Gas Sample Site Right radial Blood Gas Patient Temperature 37.0 Arterial Blood Date Drawn [id number] Arterial Blood pH 7.330 (7.350-7.450) Arterial Blood Partial Pressure CO2 31.8 mmHg (35.0-48.0) Arterial Blood Partial Pressure O2 80.6 mmHg (83.0-108.0) Arterial Blood HCO3 16.4 mmol/L (21.0-28.0) Arterial Blood Oxygen Saturation 94.6 % (94.0-98.0) Arterial Blood Base Excess -8.3 mmol/L (-2.0-3.0) Arterial Blood Oxyhemoglobin 90.6 % (94.0-98.0) Arterial Blood Carboxyhemoglobin 3.6 % (0.5-1.5) Arterial Blood Methemoglobin 0.6 % (0.0-1.5) Cyrus Test Yes Blood Gas Total Hemoglobin 14.20 g/dL (13.5-17.5) Blood Gas Modality Room air FiO2 % 21.0 Test 05/17/25 01:35 05/17/25 01:30 White Blood Count 5.9 10^3/uL (4.4-10.8) Red Blood Count 4.44 10^6/uL (4.5-5.90) Hemoglobin 14.4 g/dL (13.5-17.5) Hematocrit 42.7 % (41.0-53.0) Mean Corpuscular Volume 96.1 fL (80.0-100.0) Mean Corpuscular Hemoglobin 32.5 pg (28.0-32.0) Mean Corpuscular Hemoglobin Concent 33.8 g/dL (32.0-36.0) Red Cell Distribution Width 13.6 % (11.8-14.3) Platelet Count 226 10^3/uL (140-450) Mean Platelet Volume 8.1 fL (6.9-10.8) Neutrophils (%) (Auto) 71.5 % (37.0-80.0) Lymphocytes (%) (Auto) 20.8 % (10.0-50.0) Monocytes (%) (Auto) 7.3 % (0.0-12.0) Eosinophils (%) (Auto) 0.0 % (0.0-7.0) Basophils (%) (Auto) 0.4 % (0.0-2.0) Neutrophils # (Auto) 4.2 10 ^3/uL (1.6-8.6) Lymphocytes # (Auto) 1.2 10 ^3/uL (0.4-5.4) Monocytes # (Auto) 0.4 10 ^3/uL (0-1.3) Eosinophils # (Auto) 0 10 ^3/uL (0-0.8) Basophils # (Auto) 0 10 ^3/uL (0-0.2) Nucleated Red Blood Cells 0.1 % Hemoglobin A1c 8.1 % A1C (<5.7) Serum Osmolality 302 mOsm/kg (278-298) Lactic Acid Level 2.0 mmol/L (0.4-2.0) Lipase 23 U/L (12-53) Urine Color Light-yellow (Yellow) Urine Clarity Clear (Clear) Urine pH 5.0 (5.0-9.0) Urine Specific Alex 1.031 (1.001-1.035) Urine Protein Negative (Negative) Urine Ketones 4+ (Negative) Urine Blood Negative /uL (Negative) Urine Nitrite Negative (Negative) Urine Bilirubin Negative (Negative) Urine Urobilinogen Normal mg/dL (Negative) Urine Leukocyte Esterase Negative /uL (Negative) Urine RBC <1 /hpf (0 - 3) Urine Microscopic WBC 1 /HPF (0-3) Urine Squamous Epithelial Cells None seen /hpf (<5) Urine Bacteria None seen /hpf (None Seen) Urine Glucose 4+ mg/dL (Normal) Other Laboratory Tests 05/17/25 09:49 05/17/25 01:35 Brief Hx & Hospital Course: 29 year old male with history of DM I is complaining of nausea and vomiting with abdominal pain x3 days. Patient states he was seen at [facility] two times for the same symptoms and was diagnosed with gastritis. Patient states symptoms have no improved. Blood sugar was 405 on arrival . While in the emergency department the patient was evaluated by the provider. Patient was admitted for DKA. Patient received IV fluids and insulin drip overnight. Patient's anion gap closed. He no longer had nausea and vomiting. Patient stated he had to go to work due to social constraints. Patient was given a refill for all his diabetes and insulin. He was instructed to continue to increase his oral intake with fluids. And to abstain from sugary diet. Please to follow-up with PCP in 1 week. The patient received proper medical treatment and medications. Vital signs, Imaging and Laboratory Work was monitored daily. All consults recommendations were followed as provided. There were no complaints or new complaints upon discharge, all questions and concerns were answered. Patient was advised to return to the ER or call 911 if any headaches, dizziness, shortness of breath, chest pain, bleeding, fevers, or worsening of medical condition. Patient/Family was counseled about treatment plan, medications, possible side effects, patient verbalized understanding. All questions were answered to the best of my ability. The patient symptoms improved and they are okay to be DC. Condition at Discharge: Good Final Diagnosis/Problems List DKA DM type I Intractable nausea and vomiting Discharge Disposition: Home Discharge Instruct/Medications Diet: Consistent carbohydrate Activity: No Restrictions, As Tolerated Follow Up/Referral: pcp 1 week Medications: as prescribed Discharge Statement: "Patient was advised to return to the ER or call 911 if any headaches, dizziness, shortness of breath, chest pain, abdominal pain, bleeding, fevers, or worsening of medical condition. Patient was counseled about treatment plan, medications, possible side effects, patientverbalized understanding. All questions were answered to the best of my ability. This discharge took greater then 30 minutes in planning, reviewing documentation, counseling the patient, and discussing with other team members." ASSESSMENT ASSESSMENT Assessment CHANDA LOVE NP May 17, 2025 15:46
[2025-05-17] MEDS ORDERED: InsuLIN REG 1unit/0.01ml Soln (100units/ml) SC SCH (22:00)
== END 2025-05-17 13:32 | disposition home or self-care (01) | DRG 420 ==
LOC: ER 01:10 → OVERFLOW 03:24
PROVIDERS: ADMIT Internal Medicine Pulmonary Disease; ATTEND Physician Assistant
DX: E10.10 Type 1 diabetes mellitus with ketoacidosis without coma (principal); K76.0 Fatty (change of) liver, not elsewhere classified; Z83.3 Family history of diabetes mellitus; Z82.49 Family history of ischemic heart disease and other diseases of the circulatory system; Z82.0 Family history of epilepsy and other diseases of the nervous system; Z79.4 Long term (current) use of insulin
CPT/HCPCS: 36415; 74176; 80048; 80053; 81001; 82010; 82962; 83036; 83605; 83690; 83735; 83930; 84100; 85025; 96365; 96372; 96375; G0378; J1815; J2405; J2470

== ENCOUNTER 2025-06-08 09:12 | Emergency (ER) | payer OTHER ==
[~2025-06-08] VITALS: Ht 185.4 cm; Wt 69.9 kg
[~2025-06-08 09:12] MED LIST changes: +BLOO-200 XX; +LANC-347 XX; +[UNRECOGNIZED DRUG - CODE] XX
[2025-06-08 09:29] VITALS: BP 115/77; TEMP 97.5
[2025-06-08] MEDS: MAALOX PLUS or MAALOX 30 ML PO ONE (09:51)
[2025-06-08] MEDS: ONDANSETRON ODT 4 MG TAB PO ONE (09:51)
[2025-06-08] MEDS: FAMOTIDINE 20 MG TAB PO ONE (09:51)
[2025-06-08 09:58] VITALS: PULSE 84; RESP 20; O2SAT 96
--- NOTE | 2025-06-08 09:58 | ED.PDOC ---
History of Present Illness HPI Comments 29-year-old male presents to the ER with primary care history of diabetes(type 1-takes insulin) and the chief complaint of abdominal pain. Patient reports on having epigastric region pain with nausea and vomiting since last night onto this morning. Denies chills, fever, /D, SOB, CP. No other associated symptoms, modifiers, recent injuries or sick contacts present at this time. Chief Complaint: Abdominal Pain Time Seen by MD: 09:40 Primary Care Provider: NONE Reviewed Notes: Nurses Notes, Medications, Allergies Allergies: Coded Allergies: NO KNOWN ALLERGIES (Unverified , 10/25/21) Home Meds Active Scripts Insulin Syringe/Needle U-100 (Insulin Syringes 0.3ML/31 31G X 1/4" 0.3 ml) 1 Mis Mis, MIS XX TIDHS, #100 Prov:CHANDA LEMUS [facility] [employer] [employer] 05/17/25 Lancets (Freestyle Lancets) Lancets Mis, EA XX TID, #100 Prov:SUMITLETICIACHANDA M [facility] [employer] [employer]IST 05/17/25 Blood Glucose Monitoring Suppl (Blood Glucose Monitoring W/Device) 1 Kit Kit, KIT XX, #1 Prov:CHANDA LEMUS [facility] [employer] [employer] 05/17/25 Insulin Regular (Human) (Novolin R) 100 Unit/Ml Inj, 0 UNITS SC AC for 30 Days, #10 ML 6 Refills Use sliding scale as directed Prov:CHANDA LEMUS [facility] [employer] [employer] 05/17/25 Insulin Glargine (Lantus) 100 Unit/Ml Inj, 16 UNIT SC HS for 30 Days, #10 ML 6 Refills Prov:MARIAHVAHECHANDA M [facility] [employer] SPECIALIST 05/17/25 Reported Medications Insulin Regular (Human) (Novolin R) 100 Unit/Ml Inj, SC UD 04/07/22 Information Source: Patient Mode of Arrival: Ambulatory Severity: Moderate Timing: Hours Duration: Since onset, Hours Prehospital treatment: None Past Medical History PAST MEDICAL HISTORY: DM (Type 1 and takes insulin) Surgical History: Denies all surgeries Family History Family History: Reviewed,noncontributory to illness, Unknown Social History Smoker: Unknown Alcohol: Unknown Drugs: Unknown Lives In: Home Constitutional: denies: chills, diaphoresis, fatigue, fever, malaise, sweats, weakness, others EENTM: denies: blurred vision, double vision, ear bleeding, ear discharge, ear drainage, ear pain, ear ringing, eye pain, eye redness, hearing loss, mouth p ain, mouth swelling, nasal discharge, nose bleeding, nose congestion, nose pain, photophobia, tearing, throat pain, throat swelling, voice changes, others Respiratory: denies: cough, hemoptysis, orthopnea, SOB at rest, shortness of br eath, SOB with excertion, stridor, wheezing, others Cardiovascular: denies: chest pain, dizzy spells, diaphoresis, Dyspnea on exertion, edema, irregular heart beat, left arm pain, lightheadedness, palpitations, PND, syncope, others Gastrointestinal: reports: abdominal pain, nausea, vomiting; denies: abdomen distended, blood streaked bowels, constipated, diarrhea, dysphagia, difficulty swallowing, hematemesis, melena, poor appetite, poor fluid intake, rectal bleeding, rectal pain, others Genitourinary: denies: burning, dysuria, flank pain, frequency, hematuria, incontinence, penile discharge, penile sore, pain, testicle pain, testicle swelling, urgency, others Neurological: denies: dizziness, fainting, headache, left sided numbness, left sided weakness, numbness, paresthesia, pre-existing deficit, right sided numbness, right sided weakness, seizure, speech problems, tingling, tremors, weakness, others Musculoskeletal: denies: back pain, gout, joint pain, joint swelling, muscle pain, muscle stiffness, neck pain, others Integumetry: denies: bruises, change in color, change in hair/nails, dryness, laceration, lesions, lumps, rash, wounds, others Allergic/Immunocompromised: denies: Difficulty Healing, Frequent Infections, Hives, Itching, others Hematologic/Lymphatic: denies: anemia, blood clots, easy bleeding, easy bruising, swollen glands, others Endocrine: denies: excessive hunger, excessive sweating, excessive thirst, excessive urination, flushing, intolerance to cold, intolerance to heat, unexplained weight gain, unexplained weight loss, others Psychiatric: denies: anxiety, bipolar disorder, depression, hopeless, panic disorder, schizophrenia, sleepless, suicidal, others All Other Systems: Reviewed and Negative Physical Exam General Appearance: No Apparent Distress, Normal HEENT: Normal ENT Inspection, Pharynx Normal, TMs Normal Neck: Full Range of Motion, Non-Tender, Normal, Normal Inspection Respiratory: Chest Non-Tender, Lungs Clear, No Accessory Muscle Use, No Respiratory Distress, Normal Breath Sounds Cardiovascular: No Edema, No JVD, No Murmur, No Gallop, Normal Peripheral Pulses, Regular Rate/Rhythm Breast Exam: Deferred Gastrointestinal: No Organomegaly, Non Tender, No Pulsatile Mass, Normal Bowel Sounds, Soft Genitalia: Deferred Pelvic: Deferred Rectal: Deferred Extremities: No calf tenderness, Normal capillary refill, Normal inspection, Normal range of motion, Non-tender, No pedal edema Musculoskeletal : Apperance: Normal Neurologic: Alert, rail car driver II-XII nml as Tested, No Motor Deficits, Normal Affect, Normal Mood, No Sensory Deficits Cerebellar Function: Normal Reflexes: Normal Skin: Dry, Normal Color, Warm Lymphatic: No Adenopathy Was a procedure done? Was a procedure done?: No Differential Dx Considerations may include: Gastritis gastroenteritis, GERD X-Ray, Labs, Meds, VS Vital Signs Date Time Temp Pulse Resp B/P (MAP) Pulse Ox O2 Delivery O2 Flow Rate FiO2 06/08/25 09:58 84 20 96 Room Air* 0 21 06/08/25 09:29 97.5 91 18 115/77 (90) 97 97.5 Lab Test 06/08/25 09:57 06/08/25 09:45 06/08/25 09:25 Range/Units White Blood Count 5.7 4.4-10.8 10^3/uL Red Blood Count 4.53 4.5-5.90 10^6/uL Hemoglobin 14.5 13.5-17.5 g/dL Hematocrit 42.9 41.0-53.0 % Mean Corpuscular Volume 94.6 80.0-100.0 fL Mean Corpuscular Hemoglobin 32.1 H 28.0-32.0 pg Mean Corpuscular Hemoglobin Concent 33.9 32.0-36.0 g/dL Red Cell Distribution Width 13.9 11.8-14.3 % Platelet Count 277 140-450 10^3/uL Mean Platelet Volume 7.4 6.9-10.8 fL Neutrophils (%) (Auto) 56.3 37.0-80.0 % Lymphocytes (%) (Auto) 34.4 10.0-50.0 % Monocytes (%) (Auto) 8.3 0.0-12.0 % Eosinophils (%) (Auto) 0.3 0.0-7.0 % Basophils (%) (Auto) 0.7 0.0-2.0 % Neutrophils # (Auto) 3.2 1.6-8.6 10 ^3/uL Lymphocytes # (Auto) 2.0 0.4-5.4 10 ^3/uL Monocytes # (Auto) 0.5 0-1.3 10 ^3/uL Eosinophils # (Auto) 0 0-0.8 10 ^3/uL Basophils # (Auto) 0 0-0.2 10 ^3/uL Nucleated Red Blood Cells 0.1 % Sodium Level 140 136-145 mmol/L Potassium Level 3.6 3.5-5.1 mmol/L Chloride Level 104 98-107 mmol/L Carbon Dioxide Level 26 20-31 mmol/L Anion Gap 10 5-15 Blood Urea Nitrogen 22 9-23 mg/dL Creatinine 1.07 0.700-1.30 mg/dL Glomerular Filtration Rate Calc 95 >90 mL/min BUN/Creatinine Ratio 20.6 H 10.0-20.0 Serum Glucose 144 H 74-106 mg/dL Calcium Level 9.8 8.7-10.4 mg/dL Urine Color Yellow Yellow Urine Clarity Clear Clear Urine pH 5.5 5.0-9.0 Urine Specific [place] 1.040 H 1.001-1.035 Urine Protein 1+ H Negative Urine Ketones 3+ H Negative Urine Blood Negative Negative /uL Urine Nitrite Negative Negative Urine Bilirubin Negative Negative Urine Urobilinogen 2 H Negative mg/dL Urine Leukocyte Esterase Negative Negative /uL Urine RBC 3 0 - 3 /hpf Urine Microscopic WBC 10 H 0-3 /HPF Urine Squamous Epithelial Cells Few <5 /hpf Urine Bacteria Few H None Seen /hpf Urine Mucus Moderate None Seen Urine Glucose 1+ H Normal mg/dL POC Glucose 169 H 70-106 mg/dl Current Medications Medications (Trade) Dose Ordered Sig/Lubna Route Start Time Stop Time Status Last Admin Ondansetron HCl (Zofran Po) 4 mg ONCE ONCE PO 06/08/25 09:45 06/08/25 09:46 DC 06/08/25 09:51 Famotidine (Pepcid Tablet) 20 mg ONCE ONCE PO 06/08/25 09:45 06/08/25 09:46 DC 06/08/25 09:51 Al Hydrox/Mg Hydrox/Simethicone (Maalox Plus) 15 ml ONCE ONCE PO 06/08/25 09:45 06/08/25 09:46 DC 06/08/25 09:51 Time of 1ST Reevaluation: 10:10 Reevaluation 1ST: Unchanged Patient Education/Counseling: Diagnosis, Treatment, Prognosis Family Education/Counseling: No Family Present SEPSIS Sepsis Screen Date sepsis recognized/suspect: Jun 08, 2025 Time Sepsis recognized/suspect: 914 Recent Procedure: No On Antibiotic Therapy: No Respiratory Rate >20: No Heart Rate >90: No Temp<36 C (96.8 F) or >38.3 C: No SBP <90 or MAP <65 mmHG: No New Acute Mental Status Change: No Is the patient on CPAP, BIPAP,: No Vital Signs Date Time Temp Pulse Resp B/P (MAP) Pulse Ox O2 Delivery O2 Flow Rate FiO2 06/08/25 09:58 84 20 96 Room Air* 0 21 06/08/25 09:29 97.5 91 18 115/77 (90) 97 97.5 Laboratory Tests Test 06/08/25 09:57 White Blood Count 5.7 10^3/uL (4.4-10.8) Medications Medications Dose Ordered Sig/Lubna Route Start Time Stop Time Status Last Admin Dose Admin Al Hydrox/Mg Hydrox/Simethicone 15 ml ONCE ONCE PO 06/08/25 09:45 06/08/25 09:46 DC 06/08/25 09:51 Famotidine 20 mg ONCE ONCE PO 06/08/25 09:45 06/08/25 09:46 DC 06/08/25 09:51 Ondansetron HCl 4 mg ONCE ONCE PO 06/08/25 09:45 06/08/25 09:46 DC 06/08/25 09:51 Departure 1 Departure Time of Disposition: 11:51 (Patient with intractable abdominal pain. Patient signed out AMA in order go to work prior to workup completion) Impression: Primary Impression: Epigastric pain Disposition: LEFT AGAINST MEDICAL ADVICE Condition: Serious Critical Care Note Critical Care Time?: No Stability Stability form required: No I personally scribed for KATRINA SEO MD ([email or web address]) on 06/08/25 at 09:58. Electronically submitted by Stephon Burch ([email or web address]). KATRINA SEO MD Jun 08, 2025 09:58
[2025-06-08 10:13] LABS: Chloride 104 mmol/L (98-107); Potassium 3.6 mmol/L (3.5-5.1); Sodium 140 mmol/L (136-145)
[2025-06-08 10:14] LABS: Anion Gap 10 (5-15); Carbon Dioxide 26 mmol/L (20-31)
[2025-06-08 10:15] LABS: Calcium 9.8 mg/dL (8.7-10.4)
[2025-06-08 10:20] LABS: BUN/Creatinine Ratio 20.6 (10.0-20.0); Blood Urea Nitrogen 22 mg/dL (9-23); Hematocrit 42.9 % (41.0-53.0); Hemoglobin 14.5 g/dL (13.5-17.5); Mean Corpuscular Hemoglobin 32.1 pg (28.0-32.0); Mean Corpuscular Volume 94.6 fL (80.0-100.0); Nucleated Red Blood Cells % 0.1 %
[2025-06-08 10:21] LABS: Glucose 144 mg/dL (74-106)
[2025-06-08 11:02] LABS: Urine Protein, UAD 1+ (Negative)
== END 2025-06-08 11:03 | disposition left against medical advice (07) ==
LOC: ER 09:12
DX: R10.13 Epigastric pain (principal); E10.9 Type 1 diabetes mellitus without complications; Z79.4 Long term (current) use of insulin; Z79.899 Other long term (current) drug therapy
CPT/HCPCS: 36415; 80048; 81001; 82947; 85025; 99284; Q0162; 82962

== ENCOUNTER 2025-07-15 14:54 | Emergency (ER) | payer OTHER ==
[~2025-07-15] VITALS: Ht 188 cm; Wt 72.0 kg
[2025-07-15 15:26] VITALS: TEMP 98.2
[2025-07-15 15:31] VITALS: PULSE 57; RESP 17; O2SAT 97
--- NOTE | 2025-07-15 15:53 | ED.PDOC ---
GI ASSESSMENT HPI Comments 29 y/o M, with PMHx of DM I presents to the ED for CC of nausea/vomiting. Patient reports, has has been experiencing symptoms of nausea and vomiting sudden onset, 0300 this morning (07/15/25). Patient relays, associated symptoms of diffuse abdominal pain with lethargy and frequent urination. Patient denies fever, chills, excessive thirst, dizziness, weakness, or fatigue. No other symptoms or modifying factors are obtainable at this time. Chief Complaint: Nausea/Vomiting Time Seen by MD: 15:05 Primary Care Provider: NONE Reviewed Notes: Nurses Notes, Medications, Allergies Allergies: Coded Allergies: NO KNOWN ALLERGIES (Unverified , 10/25/21) Home Meds Active Scripts Insulin Syringe/Needle U-100 (Insulin Syringes 0.3ML/31 31G X 1/4" 0.3 ml) 1 Mis Mis, MIS XX TIDHS, #100 Prov:CHANDA LEMUS PRODUCT SAFETY MANAGER 05/17/25 Lancets (Freestyle Lancets) Lancets Mis, EA XX TID, #100 Prov:CHANDA LEMUS PRODUCT SAFETY MANAGER 05/17/25 Blood Glucose Monitoring Suppl (Blood Glucose Monitoring W/Device) 1 Kit Kit, KIT XX, #1 Prov:CHANDA LEMUS PRODUCT SAFETY MANAGER 05/17/25 Insulin Regular (Human) (Novolin R) 100 Unit/Ml Inj, 0 UNITS SC AC for 30 Days, #10 ML 6 Refills Use sliding scale as directed Prov:CHANDA LEMUS PRODUCT SAFETY MANAGER 05/17/25 Insulin Glargine (Lantus) 100 Unit/Ml Inj, 16 UNIT SC HS for 30 Days, #10 ML 6 Refills Prov:CHANDA LEMUS PRODUCT SAFETY MANAGER 05/17/25 Reported Medications Insulin Regular (Human) (Novolin R) 100 Unit/Ml Inj, SC UD 04/07/22 Information Source: Patient Mode of Arrival: Wheelchair Timing: Hours Duration: Since onset Prehospital treatment: None Vomitus: Watery Stool: Normal Severity: Moderate Recent: None Recent Hx of: None Pain Location: Diffuse Modifying Factors: Nothing Associated sign and symptoms: Nausea, Vomiting, Abdominal Pain Past Medical History PAST MEDICAL HISTORY: DM Surgical History: Denies all surgeries Family History Family History: Reviewed,noncontributory to illness, Unknown Social History Smoker: Unknown Alcohol: Unknown Drugs: Unknown Lives In: Home Constitutional: denies: chills, diaphoresis, fatigue, fever, malaise, sweats, w eakness, others EENTM: denies: blurred vision, double vision, ear bleeding, ear discharge, ear drainage, ear pain, ear ringing, eye pain, eye redness, hearing loss, mouth pain, mouth swelling, nasal discharge, nose bleeding, nose congestion, nose pain, photophobia, tearing, throat pain, throat swelling, voice changes, others Respiratory: denies: cough, hemoptysis, orthopnea, SOB at rest, shortness of breath, SOB with excertion, stridor, wheezing, others Cardiovascular: denies: chest pain, dizzy spells, diaphoresis, Dyspnea on exertion, edema, irregular heart beat, left arm pain, lightheadedness, palpitations, PND, syncope, others Gastrointestinal: reports: abdominal pain, nausea, vomiting; denies: abdomen distended, blood streaked bowels, constipated, diarrhea, dysphagia, difficulty swallowing, hematemesis, melena, poor appetite, poor fluid intake, rectal bleed ing, rectal pain, others Genitourinary: denies: burning, dysuria, flank pain, frequency, hematuria, incontinence, penile discharge, penile sore, pain, testicle pain, testicle swelling, urgency, others Neurological: denies: dizziness, fainting, headache, left sided numbness, left sided weakness, numbness, paresthesia, pre-existing deficit, right sided numbness, right sided weakness, seizure, speech problems, tingling, tremors, weakness, others Musculoskeletal: denies: back pain, gout, joint pain, joint swelling, muscle pain, muscle stiffness, neck pain, others Integumetry: denies: bruises, change in color, change in hair/nails, dryness, laceration, lesions, lumps, rash, wounds, others Allergic/Immunocompromised: denies: Difficulty Healing, Frequent Infections, Hives, Itching, others Hematologic/Lymphatic: denies: anemia, blood clots, easy bleeding, easy bruising, swollen glands, others Endocrine: denies: excessive hunger, excessive sweating, excessive thirst, excessive urination, flushing, intolerance to cold, intolerance to heat, unexplained weight gain, unexplained weight loss, others Psychiatric: denies: anxiety, bipolar disorder, depression, hopeless, panic disorder, schizophrenia, sleepless, suicidal, others All Other Systems: Reviewed and Negative Physical Exam General Appearance: Moderate Distress HEENT: Normal ENT Inspection, Pharynx Normal, TMs Normal Neck: Full Range of Motion, Non-Tender, Normal, Normal Inspection Respiratory: Chest Non-Tender, Lungs Clear, No Accessory Muscle Use, No Respiratory Distress, Normal Breath Sounds Cardiovascular: No Edema, No JVD, No Murmur, No Gallop, Normal Peripheral Pulses, Regular Rate/Rhythm Breast Exam: Deferred Gastrointestinal: No Organomegaly, Non Tender, No Pulsatile Mass, Normal Bowel Sounds, Soft Genitalia: Deferred Pelvic: Deferred Rectal: Deferred Extremities: No calf tenderness, Normal capillary refill, Normal inspection, Normal range of motion, Non-tender, No pedal edema Musculoskeletal : Apperance: Normal Neurologic: Alert, 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 Was a procedure done?: No GI differential Dx Differential Diagnosis: Constipation, Diverticular disease, Esophagitis, Gastritis/PUD, Gastroenteritis, Electrolyte Imbalance, Food Poisoning, Bacterial, Viral X-Ray, Labs, Meds, VS Vital Signs Date Time Temp Pulse Resp B/P (MAP) Pulse Ox O2 Delivery O2 Flow Rate FiO2 07/15/25 16:11 55 14 151/76 07/15/25 15:31 57 17 97 Room Air* 0 21 07/15/25 15:26 98.2 53 23 154/86 (108) 99 98.2 07/15/25 14:55 98.0 73 24 135/75 97 98.0 Lab Test 07/15/25 15:40 07/15/25 15:33 07/15/25 15:01 Range/Units POC Glucose 300 H 329 H 70-106 mg/dl White Blood Count 7.5 4.4-10.8 10^3/uL Red Blood Count 4.25 L 4.5-5.90 10^6/uL Hemoglobin 13.9 13.5-17.5 g/dL Hematocrit 40.7 L 41.0-53.0 % Mean Corpuscular Volume 95.8 80.0-100.0 fL Mean Corpuscular Hemoglobin 32.8 H 28.0-32.0 pg Mean Corpuscular Hemoglobin Concent 34.2 32.0-36.0 g/dL Red Cell Distribution Width 13.8 11.8-14.3 % Platelet Count 246 140-450 10^3/uL Mean Platelet Volume 7.8 6.9-10.8 fL Neutrophils (%) (Auto) 82.3 H 37.0-80.0 % Lymphocytes (%) (Auto) 14.9 10.0-50.0 % Monocytes (%) (Auto) 2.1 0.0-12.0 % Eosinophils (%) (Auto) 0.0 0.0-7.0 % Basophils (%) (Auto) 0.7 0.0-2.0 % Neutrophils # (Auto) 6.1 1.6-8.6 10 ^3/uL Lymphocytes # (Auto) 1.1 0.4-5.4 10 ^3/uL Monocytes # (Auto) 0.2 0-1.3 10 ^3/uL Eosinophils # (Auto) 0 0-0.8 10 ^3/uL Basophils # (Auto) 0.1 0-0.2 10 ^3/uL Nucleated Red Blood Cells 0.0 % Sodium Level 140 136-145 mmol/L Potassium Level 4.3 3.5-5.1 mmol/L Chloride Level 110 H 98-107 mmol/L Carbon Dioxide Level 19 L 20-31 mmol/L Anion Gap 11 5-15 Blood Urea Nitrogen 19 9-23 mg/dL Creatinine 1.14 0.700-1.30 mg/dL Glomerular Filtration Rate Calc 88 >90 mL/min BUN/Creatinine Ratio 16.7 10.0-20.0 Serum Glucose 319 H 74-106 mg/dL Calcium Level 10.0 8.7-10.4 mg/dL Beta-Hydroxybutyric Acid Pending Current Medications Medications (Trade) Dose Ordered Sig/Lubna Route Start Time Stop Time Status Last Admin Insulin Human Regular (InsuLIN R) 10 units ONCE ONCE IV 07/15/25 16:00 07/15/25 16:01 DC 07/15/25 16:12 Sodium Chloride 1,000 ml @ 1,000 mls/hr Q1H ONCE IV 07/15/25 16:00 07/15/25 16:59 07/15/25 16:10 Sodium Chloride 1,000 ml @ 150 mls/hr Q6H40M ONCE IV 07/15/25 16:00 07/15/25 22:39 07/15/25 16:22 Morphine Sulfate 4 mg ONCE ONCE IV 07/15/25 16:00 07/15/25 16:01 DC 07/15/25 16:11 Ondansetron HCl (Zofran) 4 mg ONCE ONCE IV 07/15/25 16:00 07/15/25 16:01 DC 07/15/25 16:10 Patient alert. Came in because of nausea vomiting. Vitals stable Answering questions. Establish intravenous access. Was given fluids. Was given insulin. Was given morphine. Was given Zofran. WBC within normal limits. Hemoglobin within normal limits. Blood sugar elevated. Normal gap. Abdomen is soft nontender. Explained to the patient. Was told to follow up with his primary care physician. Was told to come back if there is any problem. Time of 1ST Reevaluation: 15:35 Reevaluation 1ST: Improved Time of 2ND Reevaluation: 16:55 Reevaluation 2ND: Improved Patient Education/Counseling: Diagnosis, Treatment Family Education/Counseling: No Family Present SEPSIS Sepsis Screen Date sepsis recognized/suspect: Jul 15, 2025 Time Sepsis recognized/suspect: 1533 Recent Procedure: No On Antibiotic Therapy: No Respiratory Rate >20: No Heart Rate >90: No Temp<36 C (96.8 F) or >38.3 C: No SBP <90 or MAP <65 mmHG: No New Acute Mental Status Change: No Is the patient on CPAP, BIPAP,: No Physician Orders Drug Screen (07/15/25 15:24) Beta-Hydroxybutyrate (07/15/25 15:50) Sodium Chloride 0.9% (07/15/25 16:00) Sodium Chloride 0.9% (07/15/25 16:00) Vital Signs Date Time Temp Pulse Resp B/P (MAP) Pulse Ox O2 Delivery O2 Flow Rate FiO2 07/15/25 16:11 55 14 151/76 07/15/25 15:31 57 17 97 Room Air* 0 21 07/15/25 15:26 98.2 53 23 154/86 (108) 99 98.2 07/15/25 14:55 98.0 73 24 135/75 97 98.0 Laboratory Tests Test 07/15/25 15:33 White Blood Count 7.5 10^3/uL (4.4-10.8) Medications Medications Dose Ordered Sig/Lubna Route Start Time Stop Time Status Last Admin Dose Admin Insulin Human Regular 10 units ONCE ONCE IV 07/15/25 16:00 07/15/25 16:01 DC 07/15/25 16:12 Morphine Sulfate 4 mg ONCE ONCE IV 07/15/25 16:00 07/15/25 16:01 DC 07/15/25 16:11 Ondansetron HCl 4 mg ONCE ONCE IV 07/15/25 16:00 07/15/25 16:01 DC 07/15/25 16:10 Sodium Chloride 1,000 ml @ 150 mls/hr Q6H40M ONCE IV 07/15/25 16:00 07/15/25 22:39 07/15/25 16:22 Sodium Chloride 1,000 ml @ 1,000 mls/hr Q1H ONCE IV 07/15/25 16:00 07/15/25 16:59 07/15/25 16:10 Departure 1 Departure Time of Disposition: 16:55 Impression: Primary Impression: Uncontrolled diabetes mellitus Qualified Codes: E13.65 - Other specified diabetes mellitus with hyperglycemia Disposition: 01 HOME / SELF CARE / HOMELESS Condition: Good Discharged With: Self Critical Care Note Critical Care Time?: No Stability Stability form required: No Heart Score Heart Score: Heart Score Response (Comments) Value History N/A 0 EKG N/A 0 Age N/A 0 Risk Factors N/A 0 Troponin N/A 0 Total 0 I personally scribed for RUY DEXTER MD ([email or web address]) on 07/15/25 at 15:53. Electronically submitted by Blanca Marie ([email or web address]). RUY DEXTER MD Jul 15, 2025 15:53
[2025-07-15] MEDS: ONDANSETRON HCL 4 MG/2 ML VIAL IV ONE (16:10)
[2025-07-15] MEDS: SODIUM CHLORIDE 0.9% 1,000 ML IV ONE ×2 (16:10→16:22)
[2025-07-15 16:11] LABS: Hematocrit 40.7 % (41.0-53.0); Hemoglobin 13.9 g/dL (13.5-17.5); Mean Corpuscular Hemoglobin 32.8 pg (28.0-32.0); Mean Corpuscular Volume 95.8 fL (80.0-100.0); Nucleated Red Blood Cells % 0.0 %
[2025-07-15] MEDS: MORPHINE SULFATE 4 MG/ML SYR/VIAL IV ONE (16:11)
[2025-07-15] MEDS: InsuLIN REG 1unit/0.01ml Soln (100units/ml) IV ONE (16:12)
[2025-07-15 16:24] LABS: Potassium 4.3 mmol/L (3.5-5.1); Sodium 140 mmol/L (136-145)
[2025-07-15 16:25] LABS: Anion Gap 11 (5-15); Calcium 10.0 mg/dL (8.7-10.4)
[2025-07-15 16:30] LABS: BUN/Creatinine Ratio 16.7 (10.0-20.0); Blood Urea Nitrogen 19 mg/dL (9-23)
[2025-07-15 16:36] LABS: Carbon Dioxide 19 mmol/L (20-31); Chloride 110 mmol/L (98-107); Glucose 319 mg/dL (74-106)
[2025-07-15 17:03] VITALS: O2SAT 98
[2025-07-15 17:13] VITALS: BP 127/79; PULSE 65; RESP 14
== END 2025-07-15 17:18 | disposition home or self-care (01) ==
LOC: ER 14:54
DX: E11.65 Type 2 diabetes mellitus with hyperglycemia (principal); Z79.4 Long term (current) use of insulin; Z79.899 Other long term (current) drug therapy
CPT/HCPCS: 36415; 80048; 82010; 82947; 85025; 96361; 96374; 96375; 99285; J1815; J2270; J2405; J7030; 82962